=== PATIENT | female | born 1990 | race American Indian/Alaskan Native ===

== ENCOUNTER 2019-10-10 19:13 | Outpatient (CLI) | payer MEDICAID ==
[2019-10-10] MEDS ORDERED: ACETAMINOPHEN 500 MG TAB PO PRN (22:08)
[2019-10-10 22:24] VITALS: BP 105/59
== END 2019-10-10 22:47 | disposition home or self-care (01) ==
LOC: TRG 19:13
PROVIDERS: ATTEND Obstetrics & Gynecology
DX: O26.893 Other specified pregnancy related conditions, third trimester (principal); R51 Headache; Z3A.34 34 weeks gestation of pregnancy
CPT/HCPCS: 59025